=== PATIENT | male | born 1955 | race Caucasian/White ===

== ENCOUNTER 2020-02-05 08:36 | Outpatient (REF) | payer MEDICAID, SELFPAY ==
[2020-02-05 09:14] LABS: MANUAL DIFF FLAG NO
[2020-02-05 09:18] LABS: Basophils Percent Auto 0.7 % (0-2); Eosinophils Absolute Auto 0.7 X10*3/uL (0.0-0.4); Eosinophils Percent Auto 12.9 % (0-4); Hematocrit 48.2 % (42-52); Hemoglobin 16.5 g/dl (14.0-18.0); Imm Gran Abs Auto 0.01 X10*3/uL (0.00-0.03); Imm Gran Pct Auto 0.2 % (0.0-0.4); Lymphocytes Percent Auto 37.1 % (20-40); Mean Corpuscular HGB Conc 34.2 g/dl (31.0-36.0); Mean Corpuscular Hemoglobin 30.3 pg (27.0-33.0); Mean Corpuscular Volume 88.4 fL (80-98); Mean Platelet Volume 11.1 fL (9.4-12.4); Monocytes Absolute Auto 0.3 X10*3/uL (0.1-1.2); Monocytes Percent Auto 5.3 % (2-11); Neutrophils Absolute Auto 2.4 X10*3/uL (2.0-8.3); Neutrophils Percent Auto 43.8 % (45-73); Platelet Count 191 X10*3/uL (160-400); Red Blood Count 5.45 X10*6/uL (4.60-5.80); Red Cell Distribution Width 13.1 % (11.0-16.0); White Blood Count 5.4 X10*3/uL (4.8-10.8)
[2020-02-06 09:37] LABS: Erythropoietin (EPO) 7.6 mIU/mL (2.6-18.5)
[2020-02-11 17:52] LABS: JAK2 CALR Exon 9 Mutation Not Detected (Not Detected); JAK2 CSF3R Exon 14/17 Mutation Not Detected (Not Detected); JAK2 Indication Not Given; JAK2 MPL Exon 10 Mutation Not Detected (Not Detected); JAK2 Specimen Source Not Given; JAK2 V617F Mutation Not Detected (Not Detected)
== END 2020-02-05 08:37 | disposition home or self-care (01) ==
LOC: HO.LAB 08:36
PROVIDERS: PCP Internal Medicine; Visit Provider Internal Medicine
DX: D75.1 Secondary polycythemia (principal)
CPT/HCPCS: 36415; 81403; 82668; 85025

== ENCOUNTER 2021-02-05 10:02 | Outpatient (REF) | payer MEDICARE, MEDICAID, SELFPAY ==
[2021-02-05 10:42] LABS: MANUAL DIFF FLAG NO
[2021-02-05 10:55] LABS: Basophils Percent Auto 0.2 % (0-2); Eosinophils Absolute Auto 0.2 X10*3/uL (0.0-0.4); Eosinophils Percent Auto 3.7 % (0-4); Hematocrit 46.2 % (42.0-52.0); Hemoglobin 16.1 g/dl (14.0-18.0); Imm Gran Abs Auto 0.01 X10*3/uL (0.00-0.03); Imm Gran Pct Auto 0.2 % (0.0-0.4); Lymphocytes Absolute Auto 1.6 X10*3/uL (1.2-4.9); Lymphocytes Percent Auto 39.8 % (20-40); Mean Corpuscular HGB Conc 34.8 g/dl (31.0-36.0); Mean Corpuscular Hemoglobin 30.7 pg (27.0-33.0); Mean Corpuscular Volume 88.2 fL (80.0-98.0); Monocytes Absolute Auto 0.3 X10*3/uL (0.1-1.2); Monocytes Percent Auto 6.6 % (2-11); Neutrophils Percent Auto 49.5 % (45-73); Platelet Count 182 X10*3/uL (160-400); Red Blood Count 5.24 X10*6/uL (4.60-5.80); Red Cell Distribution Width 13.1 % (11.0-16.0); White Blood Count 4.1 X10*3/uL (4.8-10.8)
[2021-02-05 11:21] LABS: Alanine Aminotransferase 48 U/L (0-40); Albumin Level 4.6 g/dL (3.5-5.0); Alkaline Phosphatase 61 U/L (39-117); Anion Gap 14 (12-20); Aspartate Amino Transferase 34 U/L (5-37); Bilirubin Total 1.1 mg/dL (0.0-1.0); Blood Urea Nitrogen 11 mg/dL (9-16); Calcium 9.3 mg/dL (8.4-10.2); Carbon Dioxide 25 mmol/L (22-29); Chloride 104 mmol/L (96-108); Cholesterol 154 mg/dL; Estimated Glomerular Filt Rate > 60; Glucose Random 139 mg/dL (60-115); HDL Cholesterol 36 mg/dL; LDL Cholesterol Calculated 100 mg/dl; Sodium 139 mmol/L (135-145); Total Protein 7.3 g/dL (6.5-8.0); Triglycerides 94 mg/dL
== END 2021-02-05 10:03 | disposition home or self-care (01) ==
LOC: HO.LAB 10:02
PROVIDERS: PCP Internal Medicine; Visit Provider Internal Medicine
DX: Z00.00 Encounter for general adult medical examination without abnormal findings (principal); E78.00 Pure hypercholesterolemia, unspecified; I10 Essential (primary) hypertension; R05.9 Cough, unspecified
CPT/HCPCS: 36415; 80053; 80061; 85025

== ENCOUNTER 2023-04-19 13:36 | Outpatient (REF) | payer OTHER, SELFPAY ==
[2023-04-19 13:51] LABS: MANUAL DIFF FLAG NO
[2023-04-19 15:42] LABS: Basophils Percent Auto 0.6 % (0-2); Eosinophils Absolute Auto 0.1 X10*3/uL (0.0-0.4); Eosinophils Percent Auto 2.5 % (0-4); Hematocrit 48.5 % (42.0-52.0); Hemoglobin 16.6 g/dl (14.0-18.0); Imm Gran Abs Auto 0.01 X10*3/uL (0.00-0.03); Imm Gran Pct Auto 0.3 % (0.0-0.4); Lymphocytes Absolute Auto 1.7 X10*3/uL (1.2-4.9); Mean Corpuscular HGB Conc 34.2 g/dl (31.0-36.0); Mean Corpuscular Hemoglobin 30.2 pg (27.0-33.0); Mean Corpuscular Volume 88.3 fL (80.0-98.0); Mean Platelet Volume 11.5 fL (9.4-12.4); Monocytes Absolute Auto 0.3 X10*3/uL (0.1-1.2); Monocytes Percent Auto 6.9 % (2-11); Neutrophils Absolute Auto 1.6 x10*3/uL (2.0-8.3); Neutrophils Percent Auto 43.7 % (45-73); Platelet Count 182 X10*3/uL (160-400); Red Blood Count 5.49 X10*6/uL (4.60-5.80); Red Cell Distribution Width 13.3 % (11.0-16.0); White Blood Count 3.6 X10*3/uL (4.8-10.8)
[2023-04-19 16:22] LABS: Alanine Aminotransferase 27 U/L (0-40); Albumin Level 4.6 g/dL (3.5-5.0); Alkaline Phosphatase 62 U/L (39-117); Anion Gap 14 (12-20); Aspartate Amino Transferase 26 U/L (5-37); Bilirubin Total 0.8 mg/dL (0.0-1.0); Blood Urea Nitrogen 13 mg/dL (9-16); Calcium 9.9 mg/dL (8.4-10.2); Carbon Dioxide 26 mmol/L (22-29); Chloride 105 mmol/L (96-108); Cholesterol 220 mg/dL (<200); Estimated Glomerular Filt Rate > 60; Glucose Random 121 mg/dL (60-115); HDL Cholesterol 37 mg/dL (>40); LDL Cholesterol Calculated 154 mg/dL (<100); Potassium 3.8 mmol/L (3.3-5.1); Sodium 141 mmol/L (135-145); Total Protein 7.9 g/dL (6.5-8.0); Triglycerides 145 mg/dL (<150)
[2023-04-19 16:34] LABS: Thyroid Stimulating Hormone 1.56 uIU/mL (0.32-4.0)
== END 2023-04-19 13:37 | disposition home or self-care (01) ==
LOC: HO.LAB 13:36
PROVIDERS: PCP Internal Medicine; Visit Provider Internal Medicine
DX: E78.00 Pure hypercholesterolemia, unspecified (principal); F20.9 Schizophrenia, unspecified; I10 Essential (primary) hypertension; R73.01 Impaired fasting glucose
CPT/HCPCS: 36415; 80053; 80061; 84443; 85025

== ENCOUNTER 2023-08-30 12:38 | Outpatient (REF) | payer OTHER, SELFPAY ==
[2023-08-30 14:48] LABS: Estimated Average Glucose 137 mg/dL; Hemoglobin A1c % 6.4 % (<6.0)
[2023-08-30 15:13] LABS: Alanine Aminotransferase 26 U/L (0-40); Alkaline Phosphatase 68 U/L (39-117); Anion Gap 13 (12-20); Aspartate Amino Transferase 29 U/L (5-37); Bilirubin Total 0.6 mg/dL (0.0-1.0); Blood Urea Nitrogen 11 mg/dL (9-16); Calcium 9.8 mg/dL (8.4-10.2); Carbon Dioxide 25 mmol/L (22-29); Chloride 106 mmol/L (96-108); Cholesterol 224 mg/dL (<200); Estimated Glomerular Filt Rate > 60; Glucose Random 144 mg/dL (60-115); HDL Cholesterol 39 mg/dL (>40); LDL Cholesterol Calculated 164 mg/dL (<100); Potassium 3.6 mmol/L (3.3-5.1); Sodium 140 mmol/L (135-145); Total Protein 8.2 g/dL (6.5-8.0); Triglycerides 105 mg/dL (<150)
[2023-08-30 15:29] LABS: Prostate Specific Antigen 4.22 ng/mL (<0.05-4.0)
== END 2023-08-30 12:39 | disposition home or self-care (01) ==
LOC: HO.LAB 12:38
PROVIDERS: PCP Internal Medicine; Visit Provider Internal Medicine
DX: E78.00 Pure hypercholesterolemia, unspecified (principal); I10 Essential (primary) hypertension; N40.0 Benign prostatic hyperplasia without lower urinary tract symptoms; R73.01 Impaired fasting glucose; Z91.199 Patient's noncompliance with other medical treatment and regimen due to unspecified reason; Z12.5 Encounter for screening for malignant neoplasm of prostate
CPT/HCPCS: 36415; 80053; 80061; 83036; 84153

== ENCOUNTER → 2023-11-22 13:34 | Outpatient (RCR) | payer MEDICAID, SELFPAY ==
[2020-01-29 13:06] VITALS: BP 159/85; PULSE 78; RESP 18; TEMP 37.1; O2SAT 97; BMI 33.2
--- NOTE | 2020-01-29 13:38 | PM.HEMONCCN ---
Subjective - Subjective Chief complaint: Right rib pain Patient: new to practice Consult date: 01/29/20 Requesting Physician: Esperanza Mojica MD HPI - Consult Narrative Reason for consult: Polycythemia Narrative: Carlos Arvizu is a 64 year old male referred for evaluation of polycythemia. This was noted on routine blood work in September of 2019. His main complaint however is chronic right-sided rib cage pain, he has had a few falls over the years. He was treated with prednisone and more recently with antibiotics by his PCP. He denies any change in bowel habits, nausea or emesis. No loss of appetite or weight loss. No facial flushing, pruritus, headache, dizziness or blurry vision. One of his paternal uncles had leukemia but he does not know of any other blood disorders in his family. He quit smoking 30 years ago. He denies any problems such as asthma, COPD or sleep apnea. He does snore at night time. Review of Systems - Constitutional Reports no additional constitutional complaints - Cardiovascular Reports no additional cardiovascular complaints, Denies chest pain, Denies chest pain with activity, Denies excessive sweating, Denies fast heart rate - Respiratory Reports as per HPI, Denies cough, Denies dyspnea - Gastrointestinal Denies dyspepsia, Denies heartburn Oncology Screenings - ECOG Performance Status ECOG Performance Status: 1 [facility] Medical History: Medical History (Last Updated 01/29/20 @ 13:46 by Farnaz Batista MD) Depression Diverticulitis DJD (degenerative joint disease) Elevated liver enzymes GERD (gastroesophageal reflux disease) Helicobacter pylori (H. pylori) infection HTN (hypertension) Tubular adenoma Family History: Family History (Last Updated 01/29/20 @ 13:46 by Farnaz Batista MD) Mother Esophageal cancer Paternal Uncle Liver cancer Paternal Uncle Leukemia Smoking status: Former smoker Alcohol intake frequency: a few times a week Home Medications and Allergies Allergies Allergy/AdvReac Type Severity Reaction Status Date / Time No Known Allergies Allergy Unverified 12/12/19 16:34 [No Known Allergies*] Physical Exam Vital signs: Vital Signs Temp 98.8 F 01/29/20 13:06 Pulse 78 01/29/20 13:06 Resp 18 01/29/20 13:06 BP 159/85 H 01/29/20 13:06 Pulse Ox 97 01/29/20 13:06 Intake & Output 01/28/20 01/29/20 01/29/20 18:59 06:59 18:59 Other: Weight 87.7 kg Weight 87.7 kg - Constitutional Present: no acute distress - Routine HEENT Exam Head: Present: normal inspection Eye: Present: EOMI - Routine Neck Exam Present: supple. Absent: JVD, lymphadenopathy - Routine Respiratory Exam Present: CTAB. Absent: rhonchi, wheezes - Routine Cardiovascular Exam Cardiovascular: Present: RRR, S1, S2 - Routine Abdominal Exam Present: normal bowel sounds, soft. Absent: organomegaly, tenderness - Routine Extremities Exam Absent: joint swelling, pedal edema - Routine Skin Exam Present: intact. Absent: cyanosis, erythema, jaundice - Routine Neurological Exam Absent: sensory deficit, motor deficit Assessment and Plan (1) Polycythemia Status: Acute 1. This is a 64-year-old male referred for evaluation of polycythemia. In September 2019 his hemoglobin was 17.7 with a hematocrit of 51.8%. Hematocrit was about 48 % in 2018. He quit smoking many years ago and does not have any underlying lung problems such as COPD or sleep apnea. Hemoglobin over 16.5 is consistent with polycythemia in males. It appears to be new in onset. Hematological workup for polycythemia vera and secondary causes of polycythemia are to be submitted. Serum erythropoietin level and JAK2 mutation has been ordered. Insurance prior authorization required for this, this will be obtained and patient will be recalled for blood work. He does not have a history of cardiovascular disease and he has a history of gastritis. Therefore, I have deferred aspirin therapy at this time. Other secondary causes of polycythemia such as malignancy, renal tumors are in the differential but less likely. He had an ultrasound of the abdomen in 2019 which showed fatty liver, normal kidneys and spleen. Further recommendations to follow. I thank you very much for this consultation. Follow-up in 1 month.
[2020-03-02 10:59] VITALS: BP 143/77; PULSE 71; RESP 20; TEMP 37.2; O2SAT 98; BMI 33.5
--- NOTE | 2020-03-02 11:03 | P.PNHO_ITS ---
Medical Summary - Medical Summary Date of Service: 03/02/20 Chief complaint: Follow-up Interval History Interval history: Patient is here in follow-up. He has no complaints today, is here for results of blood work. [facility] Medical History: Medical History (Last Updated 03/02/20 @ 11:05 by Sheela Bobo RN) Claustrophobia Depression Diverticulitis DJD (degenerative joint disease) Elevated liver enzymes GERD (gastroesophageal reflux disease) Head injury consultation Helicobacter pylori (H. pylori) infection HTN (hypertension) Hypercholesteremia Tubular adenoma Family History: Family History (Last Updated 03/02/20 @ 11:07 by Sheela Bobo RN) Mother Esophageal cancer Paternal Uncle Liver cancer Paternal Uncle Leukemia Unknown Leukemia Smoking status: Former smoker Oncology Screenings - ECOG Performance Status ECOG Performance Status: 0 Home Medications and Allergies Allergies Allergy/AdvReac Type Severity Reaction Status Date / Time No Known Allergies Allergy Verified 03/02/20 11:07 [No Known Allergies*] Exam Vital signs: Vital Signs Temp 98.9 F 03/02/20 10:59 Pulse 71 03/02/20 10:59 Resp 20 03/02/20 10:59 BP 143/77 H 03/02/20 10:59 Pulse Ox 98 03/02/20 10:59 Intake & Output 03/01/20 03/02/20 03/02/20 18:59 06:59 18:59 Other: Weight 88.5 kg Weight 88.5 kg Body Mass Index 33.5 - Constitutional Present: no acute distress - Routine HEENT Exam Head: Present: normal inspection - Routine Respiratory Exam Present: CTAB. Absent: rhonchi, wheezes - Routine Cardiovascular Exam Cardiovascular: Present: RRR, S1, S2 - Routine Abdominal Exam Present: normal bowel sounds, soft. Absent: organomegaly, tenderness - Routine Extremities Exam Absent: joint swelling, pedal edema - Routine Skin Exam Present: intact. Absent: cyanosis, erythema, jaundice - Routine Neurological Exam Absent: sensory deficit, motor deficit Progress Note: A/P (1) Polycythemia Status: Acute Assessment and plan: 1. This is a 64-year-old male referred for evaluation of polycythemia. In September 2019 his hemoglobin was 17.7 with a hematocrit of 51.8%. Hematocrit was about 48 % in 2018. He quit smoking many years ago and does not have any underlying lung problems such as COPD or sleep apnea. Her workup revealed normal serum erythropoietin of 7.6 mIU/mL. He was negative for JAK2 V 617 F mutation, negative for Exon 12 mutation, negative for MPL and CSF 3R mutations. Hemoglobin was 16.5 gram/dL. Some of this could be spurious related to dehydration. I have advised him about this as well as to abstain from smoking. No further intervention is necessary at this time. Continue to monitor CBC periodically. I thank you for this referral. - Time Spent With Patient Total time spent is greater than 50% in coordination of care (as documented) at patient's floor/unit and/or counseling patient: less than 15 minutes
--- NOTE | 2020-03-02 15:34 | MHC.HEMONC ---
Patient seen today. Summary updated. Medications patient could not remember as his knows there and could not accompany to appointment due to COVID restrictions. Provider seen patient. No follow-up per provider.
== END | disposition home or self-care (01) ==
LOC: HO.ONC 01-29 12:25
PROVIDERS: Visit Provider Internal Medicine
DX: D75.1 Secondary polycythemia (principal); Z87.891 Personal history of nicotine dependence
CPT/HCPCS: 99204; 99213

== ENCOUNTER 2023-12-11 12:02 | Outpatient (REF) | payer OTHER, SELFPAY ==
[2023-12-11 13:25] LABS: Alanine Aminotransferase 27 U/L (0-40); Albumin Level 4.5 g/dL (3.5-5.0); Alkaline Phosphatase 60 U/L (39-117); Anion Gap 16 (12-20); Aspartate Amino Transferase 24 U/L (5-37); Bilirubin Total 0.8 mg/dL (0.0-1.0); Blood Urea Nitrogen 14 mg/dL (9-16); Calcium 9.7 mg/dL (8.4-10.2); Carbon Dioxide 25 mmol/L (22-29); Chloride 105 mmol/L (96-108); Cholesterol 189 mg/dL (<200); Estimated Glomerular Filt Rate > 60; Glucose Random 142 mg/dL (60-115); HDL Cholesterol 37 mg/dL (>40); LDL Cholesterol Calculated 124 mg/dL (<100); Potassium 3.9 mmol/L (3.3-5.1); Sodium 142 mmol/L (135-145); Total Protein 7.7 g/dL (6.5-8.0); Triglycerides 140 mg/dL (<150)
[2023-12-11 14:42] LABS: Estimated Average Glucose 137 mg/dL; Hemoglobin A1c % 6.4 % (<6.0)
[2023-12-11 14:53] LABS: Creatinine Urine 197.64 mg/dL; Microalbum/Creatinine Ratio Ur 6.5 ug/mg cr (<30)
== END 2023-12-11 12:03 | disposition home or self-care (01) ==
LOC: HO.LAB 12:02
PROVIDERS: PCP Internal Medicine; Visit Provider Internal Medicine
DX: E78.00 Pure hypercholesterolemia, unspecified (principal); I10 Essential (primary) hypertension; R73.01 Impaired fasting glucose; Z86.010 Personal history of colon polyps; Z91.199 Patient's noncompliance with other medical treatment and regimen due to unspecified reason
CPT/HCPCS: 36415; 80053; 80061; 82043; 82570; 83036

== ENCOUNTER 2024-01-15 12:59 | Outpatient (REF) | payer OTHER, SELFPAY | END 2024-01-15 13:00 | disposition home or self-care (01) | LOC: HO.XRAY 12:59 | PROVIDERS: PCP Internal Medicine; Visit Provider Internal Medicine | DX: R05.9 Cough, unspecified (principal) | CPT/HCPCS: 71046 ==

== ENCOUNTER 2024-07-30 14:00 | Outpatient (REF) | payer OTHER, SELFPAY ==
--- OUTSIDE RECORDS SUMMARY | 2024-07-30 15:20 | XMS_ITS ---
Author Organization [facility] Address [address] [place] [address] Care Team Providers Care Avian Keeper Name Role Phone Esperanza Mojica Primary Care Provider Unavailab Nilesh Perez [facility] [phone] REASON FOR VISIT bowel prep Medications Medication SIG (Take, Route, Frequency, Duration) Notes Start Date End Date Status Dulcolax (colon prep) 5 MG take at 3:00 p.m and 7:00p.m. Orally two tablets twice a day for one day for 1 day 05/05/2024 Active MiraLax (colon prep) 17 GM/SCOOP 1 238 Gm bottle mixed with Gatorade or Crystal Light Orally begin at 5:00 p.m. the day before the procedure for 1 day 05/05/2024 Active Encounters Encounter Location Date Provider Diagnosis [facility] [address] [place] [address] 04/30/2024 Nilesh Quintero Plan Of Treatment Medication Medication Name Sig Start Date Stop Date Notes Dulcolax (colon prep) 5 MG take at 3:00 p.m and 7:00p.m. Orally two tablets twice a day for one day for 1 day 05/05/2024 MiraLax (colon prep) 17 GM/SCOOP 1 238 Gm bottle mixed with Gatorade or Crystal Light Orally begin at 5:00 p.m. the day before the procedure for 1 day 05/05/2024 Next Appt Details Provider Name:Nilesh Quintero , 09/04/2024 08:30:00 AM, [address] [place] [address] , [place], [place], [phone], Progress Notes * TOI BUITRAGODOB:1955 (68 yo M)Acc No.[id number]:04/30/2024 Patient:?TOI BUITRAGO :1955???Age:68 Y???Sex:Male Address:[address] [place] [address] [address] , [place] [address] * Refills? Start MiraLax (colon prep) Powder, 17 GM/SCOOP, Orally, 1, 1 238 Gm bottle mixed with Gatorade or Crystal Light, begin at 5:00 p.m. the day before the procedure, 1 day, Refills=0 Start Dulcolax (colon prep) Tablet Delayed Release, 5 MG, Orally, 4, take at 3:00 p.m and 7:00p.m., two tablets twice a day for one day, 1 day, Refills=0 * true * Date:? Generated for Leda martinez/Mandie/eTarnoldsmitting on:?07/30/2024 03:19 PM EDT
--- OUTSIDE RECORDS SUMMARY | 2024-07-30 15:20 | XMS_ITS ---
Author Organization [facility] Address [address] [place] [address] Care Team Providers Care Taste Tester Name Role Phone Esperanza Mojica Primary Care Provider Unavailab Nilesh Perez [phone] Allergies No Known Allergies REASON FOR VISIT Patient presents today for a COLON SCREENING Medications Medication SIG (Take, Route, Frequency, Duration) Notes Start Date End Date Status metFORMIN HCl 1000 MG TOME 1 TABLETA POR V A ORAL TODOS LOS D Oral for 90 Active Losartan Potassium-HCTZ 50-12.5 MG TOME 1 TABLETA POR V A ORAL TODOS LOS D Oral for 90 Active Ezetimibe 10 MG TOME 1 TABLETA POR V A ORAL TODOS LOS D Oral for 90 Active Haloperidol Active Rosuvastatin Calcium Active amLODIPine Besylate Active Aspirin 81 81 MG 1 tablet Orally Once a day for 30 day(s) Active Problems Problem Type SNOMED Code ICD Code Onset Dates Problem Status W/U Status Risk Notes Problem Pre-procedure evaluation check ([id number]) Encounter for other preprocedural examination (Z01.818) Active confirmed Vital Signs Blood pressure systolic 00 mm Hg 04/30/19 25 Blood pressure diastolic 00 mm Hg 025 Height 64 in 04/30/2024 Weight 200 lbs 04/30/2024 BMI 34.33 kg/m2 04/30/2024 Encounters Encounter Location Date Provider Diagnosis [facility] [address] [place] [address] 04/30/2024 Nilesh Quintero Encounter for screen ing for malignant neoplasm of colon Z12.11 ; Encounter for other preprocedural examination Z01.818 and History of adenomatous polyp of colon Z86.010 Assessments Encounter Date Diagnosis (ICD Code) Assessment Notes Treatment Notes Treatment Clinical Notes Section Notes 04/30/2024 Encounter for screening for malignant neoplasm of colon (ICD-10 - Z12.11) Stop aspirin for 1 week before the colonoscopy. Do not take the Metformin the night before nor on the morning of the colonoscopy. Overall, Toi appears well. Given his age, personal history of tubular adenomas of the colon, and his last colonoscopy being over 5 years ago, I did recommend a followup colonoscopy for further screening purposes. We did review the rationale for that in regard to colon cancer prevention. Full consent was obtained for this, including risks of bleeding and perforation. The procedure will be done with monitored anesthesia care. Given his underlying constipation and his previous history he will have a 2 day prep for the colonoscopy to hopefully afford a good clean out. He was given the below instructions regarding the adjustment of his medications for the procedure. Toi and his were comfortable with this plan. Thank you again for allowing me to participate In Toi's care. I shall continue to keep you advised of his progress. 04/30/2024 Encounter for other preprocedural examination (ICD-10 - Z01.818) Overall, Toi appears well. Given his age, personal history of tubular adenomas of the colon, and his last colonoscopy being over 5 years ago, I did recommend a followup colonoscopy for further screening purposes. We did review the rationale for that in regard to colon cancer prevention. Full consent was obtained for this, including risks of bleeding and perforation. The procedure will be done with monitored anesthesia care. Given his underlying constipation and his previous history he will have a 2 day prep for the colonoscopy to hopefully afford a good clean out. He was given the below instructions regarding the adjustment of his medications for the procedure. Toi and his were comfortable with this plan. Thank you again for allowing me to participate In Toi's care. I shall continue to keep you advised of his progress. 04/30/2024 History of adenomatous polyp of colon (ICD-10 - Z86.010) Overall, Toi appears well. Given his age, personal history of tubular adenomas of the colon, and his last colonoscopy being over 5 years ago, I did recommend a followup colonoscopy for further screening purposes. We did review the rationale for that in regard to colon cancer prevention. Full consent was obtained for this, including risks of bleeding and perforation. The procedure will be done with monitored anesthesia care. Given his underlying constipation and his previous history he will have a 2 day prep for the colonoscopy to hopefully afford a good clean out. He was given the below instructions regarding the adjustment of his medications for the procedure. Toi and his were comfortable with this plan. Thank you again for allowing me to participate In Toi's care. I shall continue to keep you advised of his progress. Plan Of Treatment Treatment Notes Assessment Notes Encounter for screening for malignant neoplasm of colon Stop aspirin for 1 week before the colonoscopy. Do not take the Metformin the night before nor on the morning of the colonoscopy. Future Test Test Name Order Date COLONOSCOPY 04/30/2024 Next Appt Details Follow Up: prn, Reason: Provider Name:Nilesh Quintero , 09/04/2024 08:30:00 AM, [address] [place] [address], [phone], Progress Notes * MINNA TOIDOB:1955 (68 yo M)Acc No.[id number]:04/30/2024 Progress Notes Patient:?TOI BUITRAGO Provider:?Nilesh Quintero MD :1955???Age:68 Y???Sex:Male Bernabe e:04/30/2024 Address:[address] [place], [place] [id number] Pcp:Esperanza Mojica Subjective: * Chief Complaints: * ???Patient presents today fo r a COLON SCREENING * HPI: ???incontinence:? I saw Toi in the office today for evaluation of his personal history of tubular adenomas of the colon and need for colorectal cancer screening. He was accompanied by his who helped with interpreting. ?I last saw Toi in October of 2018, at which time he underwent a negative colonoscopy. In 2017 he had a colonoscopy with removal of a tubular adenoma but the prep was suboptimal and prompted the followup colonoscopy in 2019 with a 2 day prep and subsequent excellent cleanout. He has had previous colonoscopies with removal of a tubular adenoma as well. He presently feels well from a GI standpoint. He enjoys a good appetite and denies any significant heartburn or dysphagia. He does describe that his bowel movements are somewhat constipated with a formed bowel movement about every third day. He denies any hematochezia nor melena. He denies any known family history of colon cancer. He denies abdominal pain, jaundice, nor unintentional weight loss. ?Laboratories in March revealed normal chemistries, renal function, and LFTs. He had a normal CBC in March of 2023. * ROS:?General/Constitutional:?Change in appetite?denies.?Chills?denies.?Fatigue?denies.?Ophthalmologic:?Comments?all negative.?ENT:?Comments?all negative.?Respiratory:?hemoptysis?denies.?Cough?denies.?Cardiovascular:?Chest pain?denies.?Orthopnea?denies.?Gastrointestinal:?Comments?See HPI for details.?Genitourinary:?Hematuria?denies.?Dysuria?denies.?Musculoskeletal:?Painful joints?denies.?Weakness?denies.?Skin:?Itching?denies.?Rash?denies.?Neurologic:?Headache?denies.?Seizures?denies.?Psychiatric:?Comments?Per [facility].? * Medical History:? * Surgical History:?Denies Pas t Surgical History * Hospitalization/Major Diagno stic Procedure:?No Hospitalization History. * Family History:?Father: dece ased, HIV.?Mother: , Cancer tumors in stomach.? No known hx of colorectal cancer or polyps. * Social History:?Tobacco Use:?Tobacco Use/Smoking?Patient is a: former smoker , How long has it been since you last smoked?: > 10 years.?Drugs/Alcohol:?Alcohol Screen?Points: 2, Interpretation: Negative.?Miscellaneous:?Marital status: . Occupation: disabled. ???Former smoker--stopped over 30 years ago; no sig alcohol. * Medications:?TakingAspirin 8 1 81 MG Tablet Delayed Release 1 tablet Orally Once a dayamLODIPine Besylate Rosuvastatin Calcium Haloperidol Losartan Potassium-HCTZ 50-12.5 MG Tablet TOME 1 TABLETA POR V A ORAL TODOS LOS D Oral metFORMIN HCl 1000 MG Tablet TOME 1 TABLETA POR V A ORAL TODOS LOS D Oral Ezetimibe 10 MG Tablet TOME 1 TABLETA POR V A ORAL TODOS LOS D Oral Taking Aspirin 81 81 MG Tablet Delayed Release 1 tablet Orally Once a dayTaking amLODIPine Besylate Taking Rosuvastatin Calcium Taking Haloperidol Taking Losartan Potassium-HCTZ 50-12.5 MG Tablet TOME 1 TABLETA POR V A ORAL TODOS LOS D Oral Taking metFORMIN HCl 1000 MG Tablet TOME 1 TABLETA POR V A ORAL TODOS LOS D Oral Taking Ezetimibe 10 MG Tablet TOME 1 TABLETA POR V A ORAL TODOS LOS D Oral DiscontinuedhydroCHLOROthiazide Mapap Arthritis Pain cloNIDine HCl Doxepin HCl Fish Oil 500 MG Capsule 1 capsule Orally Twice a dayOmeprazole MiraLax (colon prep) 8.3 ounce ((238) grams mixed with Gatorade or Crystal Light orally begin at 5:00 p.m. the day before the procedureDulcolax (colon prep) 5 MG Tablet Delayed Release take at 3:00 p.m and 7:00p.m. Orally 2 tablets 2 days before the colonoscopy, and then two tablets twice a day for one dayOmeprazole 20 MG Capsule Delayed Release TAKE 1 CAPSULE BY MOUTH EVERY DAY Medication List reviewed and reconciled with the patientDiscontinued hydroCHLOROthiazide Discontinued Mapap Arthritis Pain Discontinued cloNIDine HCl Discontinued Doxepin HCl Discontinued Fish Oil 500 MG Capsule 1 capsule Orally Twice a dayDiscontinued Omeprazole Discontinued MiraLax (colon prep) 8.3 ounce ((238) grams mixed with Gatorade or Crystal Light orally begin at 5:00 p.m. the day before the procedureDiscontinued Dulcolax (colon prep) 5 MG Tablet Delayed Release take at 3:00 p.m and 7:00p.m. Orally 2 tablets 2 days before the colonoscopy, and then two tablets twice a day for one dayDiscontinued Omeprazole 20 MG Capsule Delayed Release TAKE 1 CAPSULE BY MOUTH EVERY DAY Medication List reviewed and reconciled with the patient * Allergies:?N.K.D.A.yes[Aller gies Verified] Objective: * Vitals:?Wt: 200 lbs, Ht: 64 in, BMI:34.33 Index, BP: 00/00 mm Hg. * Examination: ???General Examination: ?GENERAL APPEARANCE:?pleasant, well nourished, well developed, in no acute distress.?EYES:?sclera non-icteric.?ORAL CAVITY:?mucosa moist.?NECK/THYROID:?no cervical lymphadenopathy, neck supple.?SKIN:?nonjaundiced, no spider angiomata.?HEART:?S1, S2 normal.?LUNGS:?clear to auscultation bilaterally.?ABDOMEN:?normal bowel sounds, no guarding or rigidity, no guarding or rigidity, no masses palpable, soft, nontender, nondistended.?EXTREMITIES:?no edema.?NEUROLOGIC:?alert and oriented.? Assessment: * Assessment: 1.?Encounter for other prepr ocedural examination - Z01.818 (Primary)?2.?Encounter for screening for malignant neoplasm of colon - Z12.11?3.?History of adenomatous polyp of colon - Z86.010? Overall, Toi williamson. Given his age, personal history of tubular adenomas of the colon, and his last colonoscopy being over 5 years ago, I did recommend a followup colonoscopy for further screening purposes. We did review the rationale for that in regard to colon cancer prevention. Full consent was obtained for this, including risks of bleeding and perforation. The procedure will be done with monitored anesthesia care. Given his underlying constipation and his previous history he will have a 2 day prep for the colonoscopy to hopefully afford a good clean out. He was given the below instructions regarding the adjustment of his medications for the procedure. Toi and his were comfortable with this plan. Thank you again for allowing me to participate In Toi's care. I shall continue to keep you advised of his progress. Plan: * Treatment: Notes: Stop aspirin for 1 week before the colonoscopy. Do not take the Metformin the night before nor on the morning of the colonoscopy.??2.?History of adenomatous polyp of colon?Procedure: COLONOSCOPY (Ordered for 04/30/2024)* with MAC and a full 2 day pr epsched for 09/04/24 at 8:30 am * Procedure Codes:?3017F COLOR ECTAL CA SCREEN DOC [id number] TOBACCO [id number] BP SCR NOT PRFRM REC REASON NOS * Preventive Medicine:? ??Counseling:?Care goal follow-up plan:?Above Normal BMI Follow-up?Giving encouragement to exercise,?BMI management provided?Yes.? ??Screenings:?Fall Risk Screening?Fall Risk Assessment:?No falls in the past year,?Screening:?No falls in the past year,?Assessment:?Not performed, no reason specified,?Plan of Care:?Not documented, no reason specified.? * Follow Up:?prn * * Sign off status: Completed true * Provider:?Nilesh Quintero MD Date:? 025 Generated for Leda martinez/Mandie/eTransmitting on:?07/30/2024 03:20 PM EDT History and Physical Notes * HPI (History of Present Illness) Category Sub-Category Detail Notes Category Not es incontinence I saw Toi in the office today for evaluation of his personal history of tubular adenomas of the colon and need for colorectal cancer screening. He was accompanied by his who helped with interpreting. I last saw Toi in October of 2018, at which time he underwent a negative colonoscopy. In 2017 he had a colonoscopy with removal of a tubular adenoma but the prep was suboptimal and prompted the followup colonoscopy in 2019 with a 2 day prep and subsequent excellent cleanout. He has had previous colonoscopies with removal of a tubular adenoma as well. He presently feels well from a GI standpoint. He enjoys a good appetite and denies any significant heartburn or dysphagia. He does describe that his bowel movements are somewhat constipated with a formed bowel movement about every third day. He denies any hematochezia nor melena. He denies any known family history of colon cancer. He denies abdominal pain, jaundice, nor unintentional weight loss. Laboratories in March revealed normal chemistries, renal function, and LFTs. He had a normal CBC in March of 2023. Examination Category Sub-Category Detail Notes Category Not es General Examination GENERAL APPEARANCE: pleasant , well nourished, well developed, in no acute distress HEAD: EYES: sclera non-icteric EARS: NOSE: THROAT: NECK/THYROID: no cervical lymphade nopathy, neck supple HEART: S1, S2 normal CHEST: LUNGS: clear to auscultatio n bilaterally ABDOMEN: normal bowel sounds, no guarding or rigidity, no guarding or rigidity, no masses palpable, soft, nontender, nondistended NEUROLOGIC: alert and oriented SKIN: nonjaundiced, no spi pipo angiomata EXTREMITIES: no edema PERIPHERAL PULSES: BACK: BREASTS: MUSCULOSKELETAL: MALE GENITOURINARY: LYMPH NODES: RECTAL EXAM: FEMALE GENITOURINARY: ORAL CAVITY: mucosa moist
--- OUTSIDE RECORDS SUMMARY | 2024-07-30 15:20 | XMS_ITS | Patient Health Record ---
Author Organization [facility] Address [address] [place] [address] Care Team Providers Care Bagel Maker Name Role Phone DanielsukumarEsperanza Primary Care Provider Nilesh Boyd Unavailable [phone] Allergies No Known Allergies Reason For Referral No Information Medications Medication SIG (Take, Route, Frequency, Duration) Notes Start Date End Date Status Rosuvastatin Calcium Active metFORMIN HCl 1000 MG TOME 1 TABLETA POR V A ORAL TODOS LOS D Oral for 90 Active amLODIPine Besylate Active Losartan Potassium-HCTZ 50-12.5 MG TOME 1 TABLETA POR V A ORAL TODOS LOS D Oral for 90 Active Aspirin 81 81 MG 1 tablet Orally Once a day for 30 day(s) Active Haloperidol Active Dulcolax (colon prep) 5 MG take at 3:00 p.m and 7:00p.m. Orally two tablets twice a day for one day for 1 day 05/05/2024 Active MiraLax (colon prep) 17 GM/SCOOP 1 238 Gm bottle mixed with Gatorade or Crystal Light Orally begin at 5:00 p.m. the day before the procedure for 1 day 05/05/2024 Active Ezetimibe 10 MG TOME 1 TABLETA POR V A ORAL TODOS LOS D Oral for 90 Active Immunizations Vaccine Route Administration Date Status Comme nts Influenza Unknown 01/08/2019 Refused Problems Problem Type SNOMED Code ICD Code Onset Dates Problem Status W/U Status Risk Notes Problem 492355626 Encounter for screening for malignant neoplasm of colon (Z12.11) Active confirmed Problem 167099008 History of adenomatous polyp of colon (Z86.010) Active confirmed Problem Pre-procedure evaluation check (679798083) Encounter for other preprocedural examination (Z01.818) Active confirmed Problem Encounter for screening for malignant neoplasm of rectum (Z12.12) Active confirmed Problem 561737981 Gastroesophageal reflux disease without esophagitis (K21.9) Active confirmed Problem 913990041 Gastroesophageal reflux disease, esophagitis presence not specified (K21.9) Active confirmed Problem 883633489 Abdominal pain, generalized (R10.84) Active confirmed Vital Signs Blood pressure diastolic 00 mm Hg 04/30/2024 Height 64 in 04/30/2024 Blood pressure systolic 00 mm Hg 04/30/2024 Weight 200 lbs 04/30/2024 BMI 34.33 kg/m2 04/30/2024 Encounters Encounter Location Date Provider Diagnosis [facility] [address] [place] [address] 04/30/2024 Nilesh Quintero Encounter for screen ing for malignant neoplasm of colon Z12.11 ; Encounter for other preprocedural examination Z01.818 and History of adenomatous polyp of colon Z86.010 [facility] [address] [place] [phone] 04/30/2024 Nilesh Quintero Assessments Encounter Date Diagnosis (ICD Code) Assessment [...] advised of his progress. Plan Of Treatment Future Test Test Name Order Date UPPER GI ENDOSCOPY 04/12/2016 COLONOSCOPY 04/12/2016 COLONOSCOPY 01/08/2019 COLONOSCOPY 04/30/2024 Next Appt Details Provider Name:Nilesh Quintero , 09/04/2024 08:30:00 AM, [address] [place] [address] , [place], [place], [phone], Insurance Providers Payer Name Payer Address Payer Phone Subscriber Number Group Number Insured Name Patient Relationship to Insured Coverage Start Date Coverage End Date [facility] [address] [address] [place] [phone] [id number] TOI DUNCAN Self - patient is the insured Medical (General) History Medical History History ICD Code Screening colonoscopy in 200 6 with removal of a small tubular adenoma, colonoscopy 09-23-2010 was negative except for diverticulosis and internal hemorrhoids Denies SC,DM,CVA,Lung disease,renal dise ase GERD--on Omeprazole-EGD in 06/2016-small HH-no esophagitis, no Handy's Hyperlipidemia HTN Depression/Trouble sleeping Colonoscopy 06/2016-1 tubular adenoma removed, but poor prep in the left colon NIDDM Negative colonoscopy 10/2018---took a 2 d ay prep with an excellent cleanout Surgical History Surgery Date(Month/Year)
[2024-07-30 15:34] LABS: Estimated Average Glucose 137 mg/dL; Hemoglobin A1C 175.7508 umol/L; Hemoglobin A1c % 6.4 % (<6.0); Total Hemoglobin (HGBA1C) 3767.6794 umol/L
[2024-07-30 16:26] LABS: Alanine Aminotransferase 26 U/L (0-40); Albumin Level 4.5 g/dL (3.5-5.0); Anion Gap 12 (12-20); Aspartate Amino Transferase 27 U/L (5-37); Bilirubin Total 0.7 mg/dL (0.0-1.0); Blood Urea Nitrogen 11 mg/dL (9-16); Calcium 8.9 mg/dL (8.4-10.2); Carbon Dioxide 25 mmol/L (22-29); Chloride 108 mmol/L (96-108); Cholesterol 120 mg/dL (<200); Estimated Glomerular Filt Rate > 60; Glucose Random 120 mg/dL (60-115); HDL Cholesterol 30 mg/dL (>40); LDL Cholesterol Calculated 70 mg/dL (<100); Potassium 3.7 mmol/L (3.3-5.1); Sodium 141 mmol/L (135-145); Total Protein 7.3 g/dL (6.5-8.0); Triglycerides 100 mg/dL (<150)
[2024-07-30 18:21] LABS: Alkaline Phosphatase 63 U/L (39-117)
== END 2024-07-30 14:01 | disposition home or self-care (01) ==
LOC: HO.LAB 14:00
PROVIDERS: PCP Internal Medicine; Visit Provider Internal Medicine
DX: E78.00 Pure hypercholesterolemia, unspecified (principal); I10 Essential (primary) hypertension; K09.8 Other cysts of oral region, not elsewhere classified; R73.01 Impaired fasting glucose
CPT/HCPCS: 36415; 80053; 80061; 83036

== ENCOUNTER 2024-09-04 06:28 | Day surgery (SDC) | payer OTHER, SELFPAY ==
--- OUTSIDE RECORDS SUMMARY | 2024-08-27 15:45 | XMS_ITS ---
Author Organization [facility] Address [address] [place] [address] Care Team Providers Care Doughnut Fryer Name Role Phone Esperanza Mojica Primary Care Provider Unavailab Nilesh [facility] [phone] REASON FOR VISIT bowel prep Medications Medication [...] Active Encounters Encounter Location Date Provider Diagnosis [facility] [address] [place] [address] 04/30/2024 Nilesh Quintero Plan Of Treatment Medication [...] Appt Details Provider Name:Nilesh Quintero , 09/04/2024 07:30:00 AM, [address] [place] [address] , [place], [place], [phone], Progress Notes * TOI BUITRAGODOB:1955 (68 yo M)Acc No.[id number]:04/30/2024 Patient:?TOI BUITRAGO :1955???Age:68 Y???Sex:Male Address:[address] [place] [address] [address] [place] [address] * Refills? Start MiraLax (colon prep) Powder, [...] true * Date:? Generated for Leda martinez/Mandie/eTarnoldsmitting on:?08/27/2024 03:44 PM EDT
[2024-09-02 14:26] VITALS: BMI 34.3
--- NOTE | 2024-09-03 08:44 | HO.ANESPROP2 ---
HPI - Anesthesia Eval Consult details Narrative: 68yo M for Colonoscopy PMFSH Active Problems Active Problems: All Active Problems Polycythemia (Acute) Past Medical History Medical History Chronic cough Diabetes Head injury consultation Claustrophobia Hypercholesteremia Depression DJD (degenerative joint disease) Elevated liver enzymes Diverticulitis Tubular adenoma HTN (hypertension) GERD (gastroesophageal reflux disease) Helicobacter pylori (H. pylori) infection Family History Family History Mother Esophageal cancer Paternal Uncle Liver cancer Paternal Uncle Leukemia Unknown Leukemia Surgical History Surgical History H/O colonoscopy Social History Social History Patient Tobacco Use Status: Never used Tobacco Have you been hit, kicked, punched, or otherwise hurt by someone within the past year? If so, by whom?: No Are you DNR?: No Advance Directives: No Advance Directives Information Provided: Yes Meds Allergies Allergy/AdvReac Type Severity Reaction Status Date / Time No Known Allergies (No Known Allergy Verified 03/02/20 11:07 Allergies*) Home Medications ?Medication ?Instructions ?Recorded ?Confirmed ?Last Taken ?Type amlodipine 10 mg tablet 10 mg PO DAILY 09/02/24 09/02/24 09/04/24 History aspirin 81 mg tablet,delayed 81 mg PO DAILY 09/02/24 09/02/24 08/30/24 History release ezetimibe 10 mg tablet 10 mg PO DAILY 09/02/24 09/02/24 Unknown History losartan 50 mg-hydrochlorothiazide 1 tab PO DAILY 09/02/24 09/02/24 Unknown History 12.5 mg tablet metformin 1,000 mg tablet 1,000 mg PO DAILY 09/02/24 09/02/24 Unknown History rosuvastatin 40 mg tablet 40 mg PO BEDTIME 09/02/24 09/02/24 09/04/24 History Exam Height,Weight and Vital Signs: Height 5 ft 4 in Weight 90.718 kg Assessment and Plan Assessment Anesthesia Assessment: Chart Reviewed
[2024-09-04 06:41] VITALS: BP 135/101; PULSE 71; RESP 20; TEMP 36.9; O2SAT 98; BMI 33.8
[2024-09-04 06:52] LABS: Glucose, Whole Blood 140 mg/dL (60-115)
[2024-09-04] MEDS: Lactated Ringers 1,000 ML 100 ML IVCONT (06:54)
--- NOTE | 2024-09-04 07:40 | P.CONAN_ITS ---
[facility] Active Problems Active Problems: All Active Problems Polycythemia (Acute) Past Medical History Medical History Chronic cough Diabetes Head injury consultation Claustrophobia Hypercholesteremia Depression DJD (degenerative joint disease) Elevated liver enzymes Diverticulitis Tubular adenoma HTN (hypertension) GERD (gastroesophageal reflux disease) Helicobacter pylori (H. pylori) infection Functional capacity: independent ambulation Family History Family History Mother Esophageal cancer Paternal Uncle Liver cancer Paternal Uncle Leukemia Unknown Leukemia Family history of problems with anesthesia: No Surgical History Surgical History H/O colonoscopy History of Problems with Anesthesia: No Social History Social History Patient Tobacco Use Status: Never used Tobacco Have you been hit, kicked, punched, or otherwise hurt by someone within the past year? If so, by whom?: No Are you DNR?: No Advance Directives: No Advance Directives Information Provided: Yes Meds Allergies Allergy/AdvReac Type Severity Reaction Status Date / Time No Known Allergies Allergy Verified 03/02/20 11:07 [No Known Allergies*] Active Medications: Current Medications Lactated Ringer's (Lr) 1,000 mls @ 100 mls/hr IVCONT .Q10H ZAID Last Admin: 09/04/24 06:54 Dose: 100 mls/hr Sodium Biphosphate/Sodium Phosphate (Sodium Phosphate,Griggs-Dibasic 133 Ml Enema) 133 ml DE ONCE PRN PRN Reason: Poor Colonoscopy Prep Results Home Medications ?Medication ?Instructions ?Recorded ?Confirmed ?Last Taken ?Type amlodipine 10 mg tablet 10 mg PO DAILY 09/02/24 09/02/24 09/04/24 History aspirin 81 mg tablet,delayed 81 mg PO DAILY 09/02/24 09/02/24 08/30/24 History release ezetimibe 10 mg tablet 10 mg PO DAILY 09/02/24 09/02/24 Unknown History losartan 50 mg-hydrochlorothiazide 1 tab PO DAILY 09/02/24 09/02/24 Unknown History 12.5 mg tablet metformin 1,000 mg tablet 1,000 mg PO DAILY 09/02/24 09/02/24 Unknown History rosuvastatin 40 mg tablet 40 mg PO BEDTIME 09/02/24 09/02/24 09/04/24 History Exam Height,Weight and Vital Signs: Height 5 ft 4 in Weight 89.2 kg Last Vital Signs Temp 98.5 F 09/04/24 06:41 Pulse 71 09/04/24 06:41 Resp 20 09/04/24 06:41 BP 135/101 H 09/04/24 06:41 Pulse Ox 98 09/04/24 06:41 O2 Del Method Room Air 09/04/24 06:41 Pertinent Lab Results Pertinent Lab Results: Laboratory Tests 09/04/24 06:47 POC Glucose 140 H Airway Mallampati Class: II TM Dist: >3cm Neck ROM: Full Denture: Upper Heart: RRR Lungs: CTA Assessment and Plan Assessment Anesthesia Assessment: Anesthesia Plan Discussed Final Anesthetic Review Family History of Problems with Anesthesia: No History of Problems with Anesthesia: No NPO: Yes ASA Class: II Final Preanesthetic Review: Meds/Allgs Chart Reviewed, Consent Obtained/Reviewed and Anes Risks/Benef Reviewed Patient Risk: Low Procedure Risk: Low Anesthetic Plan Anesthetic Plan: MAC: Disposition: Standard PACU
[2024-09-04 09:00] VITALS: BP 112/60; PULSE 61; RESP 11; TEMP 36.2; O2SAT 94
--- NOTE | 2024-09-04 09:02 | P.BOP_ITS ---
Brief Operative Note Date of Service: 09/04/24 Pre-op diagnosis: Screening Post-op diagnosis: other (Diverticulosis) Procedure: Colonoscopy to the cecum Surgeon: Nilesh Quintero MD Anesthesia: MAC Was an Supervisor Compounding And Finishing used for this Procedure?: No Estimated blood loss (mL): 0 Pathology: none sent Condition: stable Disposition: PACU
[2024-09-04 09:05] VITALS: BP 118/64; PULSE 64; RESP 18; O2SAT 96
[2024-09-04 09:20] VITALS: BP 128/74; PULSE 70; RESP 16; TEMP 36.2; O2SAT 97
--- NOTE | 2024-09-04 09:30 | HO.POSTANES ---
Post Anesthesia Evaluation Post Anesthesia Evaluation Date of Service: 09/04/24 Vital Signs: Vital Signs Temp Pulse Resp BP Pulse Ox O2 Del Method 09/04/24 09:20 97.1 F 70 16 128/74 97 Room Air 09/04/24 09:05 64 18 118/64 96 Room Air 09/04/24 09:00 97.2 F 61 11 L 112/60 94 Room Air 09/04/24 06:41 98.5 F 71 20 135/101 H 98 Room Air Anesthesia: Monitored Mental Status: Awake Pain Control: Satisfactory Nausea/Vomiting: None Hydration: Adequate Anesthesia-Related Issues: No Anes. Related Issues
--- NOTE | 2024-09-04 10:11 | OP_ITS ---
DATE OF SERVICE: 09/04/2024 SURGEON: Nilesh Quintero MD INDICATIONS: The patient presents for evaluation of personal history of tubular adenoma of the colon and colorectal cancer screening. Full consent has been obtained from him for this, including risks of bleeding and perforation. PREOPERATIVE DIAGNOSIS: POSTOPERATIVE DIAGNOSIS: PROCEDURE PERFORMED: Colonoscopy to the cecum. ESTIMATED BLOOD LOSS: COMPLICATIONS: ANESTHESIA: Medication used, monitored anesthesia care. ASSISTANTS: SPECIMENS: PREOPERATIVE DIAGNOSES: Colorectal cancer screening and personal history of tubular adenoma of the colon. POSTOPERATIVE DIAGNOSES: Colorectal cancer screening and personal history of tubular adenoma of the colon, diverticulosis, and internal hemorrhoids. DESCRIPTION OF PROCEDURE: The patient was placed in the left lateral decubitus position. The digital rectal exam revealed no abnormalities. The Olympus video pediatric colonoscope was entered into the rectum and advanced easily to the cecum. Once in the cecum, I did identify normal-appearing cecal pouch with appendiceal orifice and a normal-appearing ileocecal valve. The entire cecum and ileocecal valve appeared normal. The scope was then slowly withdrawn assessing all mucosal surfaces carefully. Preparation was excellent after his 2 day prep. There were several diverticula in the ascending colon. There was a mild amount of diverticulosis in the sigmoid colon. I did not visualize any sign of polyps, colitis, nor angiodysplasia. In the rectum, scope was retroflexed visualizing internal hemorrhoids, but no other pathology. The rectal mucosa appeared normal. Scope was straightened and withdrawn from the patient. He tolerated the procedure well and was returned to the recovery area in stable condition. IMPRESSION: 1. Diverticulosis. 2. Internal hemorrhoids. PLAN: Given today's negative exam, but his previous history of a tubular adenoma, I would recommend a followup coloscopy in 5 years. He will otherwise see me on a p.r.n. basis. MD ALEXI Talbert/HUEY / [id number]
== END 2024-09-04 09:50 | disposition home or self-care (01) ==
PROVIDERS: PCP Internal Medicine; Visit Provider Internal Medicine
PROC: 0DJD8ZZ Inspection of Lower Intestinal Tract, Via Natural or Artificial Opening Endoscopic (ICD-10-PCS; CPT 45378; principal; 2024-09-04 07:30)
DX: Z12.11 Encounter for screening for malignant neoplasm of colon (principal); Z86.0101 Personal history of adenomatous and serrated colon polyps; K57.30 Diverticulosis of large intestine without perforation or abscess without bleeding; K64.8 Other hemorrhoids; K21.9 Gastro-esophageal reflux disease without esophagitis; I10 Essential (primary) hypertension; E78.5 Hyperlipidemia, unspecified; F32.A Depression, unspecified; E11.9 Type 2 diabetes mellitus without complications; Z79.82 Long term (current) use of aspirin; Z79.84 Long term (current) use of oral hypoglycemic drugs; Z79.899 Other long term (current) drug therapy
CPT/HCPCS: G0105; 82947; J2003; J2704

== ENCOUNTER 2024-11-01 10:00 | Outpatient (REF) | payer OTHER, SELFPAY ==
--- OUTSIDE RECORDS SUMMARY | 2024-11-01 10:04 | XMS_ITS | Patient Health Record ---
Author Organization [facility] Address [address] [place] [address] Care Team Providers Care Healthcare Project Manager Name Role Phone DanielsukumarEsperanza Primary Care Provider Nilesh Boyd Unavailable [phone] Allergies No Known Allergies Results Component Value Reference Range Notes Glucose, Whole Blood Reviewed date:09/04/2024 06:40:37 PM Interpretation: Performing Lab:[facility], [address] [place] [id number] Notes/Report: Glucose, Whole Blood 140 60-115 mg/dL METER # : [id number] Reason For Referral No Information Medications Medication [...] Problem Status W/U Status Risk Notes Problem 993183639 Encounter for screening for malignant neoplasm of colon (Z12.11) Active confirmed Problem 244801025 History of adenomatous polyp of colon (Z86.010) Active confirmed Problem Pre-procedure evaluation check (236274255) Encounter for other preprocedural examination (Z01.818) Active confirmed Problem Encounter for screening for malignant neoplasm of rectum (Z12.12) Active confirmed Problem 143201407 Gastroesophageal reflux disease without esophagitis (K21.9) Active confirmed Problem 875545142 Gastroesophageal reflux disease, esophagitis presence not specified (K21.9) Active confirmed Problem 154150942 Abdominal pain, generalized (R10.84) Active confirmed Vital Signs Blood pressure diastolic 00 mm Hg 04/30/2024 Height 64 in 04/30/2024 Blood pressure systolic 00 mm Hg 04/30/2024 Weight 200 lbs 04/30/2024 BMI 34.33 kg/m2 04/30/2024 Encounters Encounter Location Date Provider Diagnosis [facility] [address] [address] [place], [place] [id number] 09/04/2024 Nilesh Quintero Colon cancer screeni ng Z12.11 ; History of adenomatous polyp of colon Z86.0101 and Diverticulosis of large intestine without perforation or abscess without bleeding K57.30 [facility] [address] [place] [address] 04/30/2024 Nilesh Quintero Encounter for screen ing for malignant neoplasm of colon Z12.11 ; Encounter for other preprocedural examination Z01.818 and History of adenomatous polyp of colon Z86.010 [facility] [address] [place] [phone] 04/30/2024 Nilesh Quintero Assessments Encounter Date Diagnosis (ICD Code) Assessment Notes Treatment Notes Treatment Clinical Notes Section Notes 09/04/2024 Colon cancer screening (ICD-10 - Z12.11) 09/04/2024 History of adenomatous polyp of colon (ICD-10 - Z86.0101) 04/30/2024 Encounter for screening for malignant neoplasm [...] adjustment of his medications for the procedure. oTi and his were comfortable with this plan. Thank you again for allowing me to participate In Toi's care. I shall continue to keep you advised of his progress. 09/04/2024 Diverticulosis of large intestine without perforation or abscess without bleeding (ICD-10 - K57.30) 04/30/2024 History of adenomatous polyp of colon [...] 04/12/2016 COLONOSCOPY 04/12/2016 COLONOSCOPY 01/08/2019 COLONOSCOPY 04/30/2024 Insurance Providers Payer Name Payer Address Payer Phone Subscriber Number Group Number Insured Name Patient Relationship to Insured Coverage Start Date Coverage End Date [employer] [address] [address] [place] [phone] [id number] JANIS YousifTOI Self - patient is the insured Medical (General) History Medical History History ICD Code Screening colonoscopy in 200 6 with removal of a small tubular adenoma, colonoscopy 09-23-2010 was negative except for diverticulosis and internal hemorrhoids Denies CA,DM,CVA,Lung disease,renal dise ase GERD--on Omeprazole-EGD in 06/2016-small HH-no esophagitis, no Ahndy's Hyperlipidemia HTN Depression/Trouble sleeping Colonoscopy 06/2016-1 tubular adenoma removed, but poor prep in the left colon NIDDM Negative colonoscopy 10/2018---took a 2 d ay prep with an excellent cleanout Surgical History Surgery Date(Month/Year)
[2024-11-01 11:31] LABS: Microalbum/Creatinine Ratio Ur 5.3 ug/mg cr (<30)
[2024-11-01 11:40] LABS: Hemoglobin A1C 191.6906 umol/L; Total Hemoglobin (HGBA1C) 4009.1608 umol/L
[2024-11-01 11:42] LABS: Alanine Aminotransferase 26 U/L (0-40); Albumin Level 4.9 g/dL (3.5-5.0); Alkaline Phosphatase 70 U/L (39-117); Anion Gap 12 (12-20); Aspartate Amino Transferase 27 U/L (5-37); Blood Urea Nitrogen 12 mg/dL (9-16); Calcium 9.0 mg/dL (8.4-10.2); Carbon Dioxide 27 mmol/L (22-29); Chloride 107 mmol/L (96-108); Estimated Glomerular Filt Rate > 60; Potassium 4.1 mmol/L (3.3-5.1); Sodium 142 mmol/L (135-145); Total Protein 7.7 g/dL (6.5-8.0)
== END 2024-11-01 10:01 | disposition home or self-care (01) ==
LOC: HO.LAB 10:00
PROVIDERS: PCP Internal Medicine; Visit Provider Internal Medicine
DX: N40.0 Benign prostatic hyperplasia without lower urinary tract symptoms (principal); E78.00 Pure hypercholesterolemia, unspecified; F21 Schizotypal disorder; I10 Essential (primary) hypertension; R73.01 Impaired fasting glucose; Z12.5 Encounter for screening for malignant neoplasm of prostate
CPT/HCPCS: 36415; 80053; 82043; 82570; 83036; 84153

== ENCOUNTER 2025-02-10 14:32 | Outpatient (REF) | payer OTHER, SELFPAY ==
[2025-02-10 16:14] LABS: Alanine Aminotransferase 52 U/L (0-40); Albumin Level 4.9 g/dL (3.5-5.0); Alkaline Phosphatase 66 U/L (39-117); Anion Gap 11 (12-20); Aspartate Amino Transferase 37 U/L (5-37); Blood Urea Nitrogen 12 mg/dL (9-16); Calcium 9.6 mg/dL (8.4-10.2); Carbon Dioxide 29 mmol/L (22-29); Chloride 106 mmol/L (96-108); Estimated Glomerular Filt Rate > 60; Potassium 4.4 mmol/L (3.3-5.1); Sodium 142 mmol/L (135-145); Total Protein 7.8 g/dL (6.5-8.0)
[2025-02-10 16:36] LABS: Vitamin B12 312 pg/mL (200-900)
== END 2025-02-10 14:33 | disposition home or self-care (01) ==
LOC: HO.LAB 14:32
PROVIDERS: PCP Internal Medicine; Visit Provider Internal Medicine
DX: I10 Essential (primary) hypertension (principal); E11.9 Type 2 diabetes mellitus without complications; E78.00 Pure hypercholesterolemia, unspecified; R41.89 Other symptoms and signs involving cognitive functions and awareness; Z86.0101 Personal history of adenomatous and serrated colon polyps
CPT/HCPCS: 36415; 80053; 82607; 83036